=== PATIENT | female | born 1995 | race Caucasian/White ===

== ENCOUNTER 2016-08-26 19:44 | Emergency (ER) | payer SELFPAY ==
[2016-08-26 19:54] VITALS: BP 118/83; PULSE 105; RESP 16; TEMP 99.4; O2SAT 100
--- NOTE | 2016-08-26 20:17 | ED PDOC ---
HPI: Headache Time Seen by Provider: 08/26/16 20:09 Chief Complaint (Nursing): Headache Chief Complaint (Provider): Headache History Per: Patient History/Exam Limitations: no limitations Onset/Duration Of Symptoms: Days (3x) Current Symptoms Are (Timing): Still Present Severity: Moderate Pain Scale Rating Of: 8 Associated Symptoms: denies: Photophobia, Blurred Vision, Nausea, Vomiting Additional Complaint(s): 20 year old female presents with ongoing headache that started 3x days ago which she rates as an 8/10 on the pain scale. She reports that she has been having similar headaches for the past year (once every 1-2 weeks) that are similar to today's headache, but they do not last for more than a day. Patient has never been evaluated for these headache in the past. No associated vision changes, dizziness, nausea or vomiting, no fever or chills. Patient has been taking advil but this provided only minimal relief of pain. Patient states current headache is not the worst headache of her life. Past Medical History Reviewed: Historical Data, Nursing Documentation, Vital Signs Vital Signs: Last Vital Signs Temp 99.4 F 08/26/16 19:51 Pulse 105 H 08/26/16 19:51 Resp 16 08/26/16 19:51 BP 118/83 08/26/16 19:51 Pulse Ox 100 08/26/16 19:51 - Medical History PMH: No Chronic Diseases - Surgical History Surgical History: No Surg Hx - Family History Family History: States: No Known Family Hx - Living Arrangements Living Arrangements: With Family - Social History Current smoker - smoking cessation education provided: No Alcohol: None Drugs: Denies - Home Medications Home Medications: Ambulatory Orders Medication Instructions Recorded Amoxicillin/Clavulanate [Augmentin 1 tab PO BID #20 tab 03/21/16 500 MG-125 MG] Metoclopramide [Reglan] 10 mg PO Q6 PRN #20 tab 08/26/16 Naproxen [Naprosyn] 500 mg PO BID #20 tab 08/26/16 - Allergies Allergies/Adverse Reactions: Allergies Allergy/AdvReac Type Severity Reaction Status Date / Time No Known Allergies Allergy Verified 08/26/16 19:51 Review of Systems ROS Statement: Except As Marked, All Systems Reviewed And Found Negative Constitutional: Negative for: Fever, Chills Eyes: Negative for: Vision Change Gastrointestinal: Negative for: Nausea, Vomiting, Abdominal Pain Neurological: Positive for: Headache (x 3 days). Negative for: Dizziness Physical Exam - Reviewed Nursing Documentation Reviewed: Yes Vital Signs Reviewed: Yes - Physical Exam Appears: Positive for: Well, Non-toxic, No Acute Distress Head Exam: Positive for: ATRAUMATIC, NORMOCEPHALIC Skin: Positive for: Normal Color, Warm, Dry Eye Exam: Positive for: Normal appearance, EOMI, PERRL Neck: Positive for: Normal, Painless ROM, Supple Cardiovascular/Chest: Positive for: Regular Rate, Rhythm Respiratory: Positive for: Normal Breath Sounds. Negative for: Respiratory Distress Extremity: Positive for: Normal ROM. Negative for: Pedal Edema Neurologic/Psych: Positive for: Alert, Oriented (3x) - Laboratory Results Urine POC: Negative - ECG O2 Sat by Pulse Oximetry: 100 (RA) Pulse Ox Interpretation: Normal - Other Rad CT head X-Ray: Read By Radiologist X-Ray Interpretation: no acute finding Medical Decision Making Medical Decision Makin:09 Initial impression: 20 year old female with a headache. Initial plan: * CT head w/o contrast * urine * reglan 10mg IM * tramadol 50mg PO * reevaluation Patient feels better after meds given, headache is now a /10. Rx given for naprosyn and reglan. Patient was given referral for neurology options trader. Scribe Attestation: Documented by Nkechi Rodriguez, acting as a scribe for Daina Ramirez PA-C. Provider Scribe Attestation: All medical record entries made by the Scribe were at my direction and personally dictated by me. I have reviewed the chart and agree that the record accurately reflects my personal performance of the history, physical exam, medical decision making, and the department course for this patient. I have also personally directed, reviewed, and agree with the discharge instructions and disposition. Disposition - Clinical Impression Clinical Impression: Headache - Patient ED Disposition Is Patient to be Admitted: No Counseled Patient/Family Regarding: Studies Performed, Diagnosis, Need For Followup, Rx Given - Disposition Referrals: Tyler Hughes MD [Staff Provider] - Disposition: Routine/Home Disposition Time: 21:08 Condition: IMPROVED Additional Instructions: TAKE RX MEDS DIRECTED NEEDED FOR HEADACHE. DRINK PLENTY OF FLUIDS. FOLLOW UP WITH PRIMARY CARE DOCTOR OR WITH NEUROLOGIST FOR ANY PERSISTENT SYMPTOMS. Prescriptions: Metoclopramide [Reglan] 10 mg PO Q6 PRN #20 tab PRN Reason: Headache Naproxen [Naprosyn] 500 mg PO BID #20 tab Instructions: General Headache (ED)
--- NOTE | 2016-08-26 20:53 | CT ---
EXAM: CT Head Without Intravenous Contrast CLINICAL HISTORY: 20 years old, female; Pain; Headache; Headache not specified; Additional info: Persistent headache for 3 days TECHNIQUE: Axial computed tomography images of the head/brain without intravenous contrast. This CT exam was performed using one or more of the following dose reduction techniques: automated exposure control, adjustment of the mA and/or kV according to patient size, and/or use of iterative reconstruction technique. Coronal and sagittal reformatted images were created and reviewed. COMPARISON: No relevant prior studies available. FINDINGS: Brain: No hemorrhage. No significant white matter disease. No edema. Ventricles: No hydrocephalus. Bones: Skull is intact. Sinuses: No acute sinusitis. Mastoid air cells: No mastoid effusion. IMPRESSION: No CT evidence of acute intracranial abnormality.
== END 2016-08-26 20:10 | disposition home or self-care (01) ==
LOC: H.ER 19:44
DX: R51 Headache (principal)
CPT/HCPCS: 70450; 81025; 96372; 99284; J2765